=== PATIENT | female | born 1975 | race Caucasian/White ===

== ENCOUNTER 2024-08-11 00:17 | Emergency (ER) | payer MEDICAID, OTHER ==
[~2024-08-11] VITALS: Ht 170.2 cm; Wt 95.3 kg
[2024-08-11 02:07] LABS: *URINE HCG, QUAL POSITIVE (NEGATIVE)
[2024-08-11 03:31] VITALS: BP 132/92; TEMP 208.8; O2SAT 100
== END 2024-08-11 03:36 | disposition home or self-care (01) ==
LOC: ER 00:29
DX: Z33.1 Pregnant state, incidental (principal); R10.2 Pelvic and perineal pain; J45.909 Unspecified asthma, uncomplicated; F17.210 Nicotine dependence, cigarettes, uncomplicated; Z59.00 Homelessness unspecified
CPT/HCPCS: 84703; A4606; A4663